=== PATIENT | female | born 1960 | race Caucasian/White ===

== ENCOUNTER 2017-07-28 17:41 | Emergency (ER) | payer OTHER, BC ==
[2017-07-28] MEDS: ACETAMINOPHEN 325 MG TAB PO (19:53)
== END 2017-07-28 20:45 | disposition home or self-care (01) ==
LOC: M ED 17:41
DX: S16.1XXA Strain of muscle, fascia and tendon at neck level, initial encounter (principal); V49.49XA Driver injured in collision with other motor vehicles in traffic accident, initial encounter; Y92.410 Unspecified street and highway as the place of occurrence of the external cause; Y93.89 Activity, other specified; Y99.8 Other external cause status; M50.30 Other cervical disc degeneration, unspecified cervical region; F41.9 Anxiety disorder, unspecified; Z98.84 Bariatric surgery status; Z79.899 Other long term (current) drug therapy; Z88.0 Allergy status to penicillin; Z88.1 Allergy status to other antibiotic agents; Z88.2 Allergy status to sulfonamides
CPT/HCPCS: 72125

== ENCOUNTER 2017-08-30 06:49 | Emergency (ER) | payer OTHER, BC ==
[2017-08-30] MEDS ORDERED: MORPHINE 2 MG/ML 1ML SYRINGE IV (08:15)
[2017-08-30] MEDS: PARoxetine 20 MG TAB PO (08:52)
[2017-08-30] MEDS: IBUPROFEN 600 MG TAB PO (08:52)
[2017-08-30 09:01] LABS: BEDSIDE GLUCOSE 95 MG/DL (70-105)
== END 2017-08-30 10:37 | disposition home or self-care (01) ==
LOC: M ED 06:49
DX: S60.211A Contusion of right wrist, initial encounter (principal); S20.219A Contusion of unspecified front wall of thorax, initial encounter; M54.6 Pain in thoracic spine; V49.40XA Driver injured in collision with unspecified motor vehicles in traffic accident, initial encounter; Y92.410 Unspecified street and highway as the place of occurrence of the external cause; I45.10 Unspecified right bundle-branch block; M19.031 Primary osteoarthritis, right wrist; F41.9 Anxiety disorder, unspecified; Z79.899 Other long term (current) drug therapy; Z88.0 Allergy status to penicillin; Z88.2 Allergy status to sulfonamides
CPT/HCPCS: 71046

== ENCOUNTER → 2021-04-05 | Outpatient (CLI) | payer OTHER, BC ==
[~2021-04-05] MED LIST: IBUP-1022 PO; PARO40TA2 PO; ROBA500T PO
== END ==
LOC: M LABSMTC 10:57
PROVIDERS: ATTEND Anesthesiology
DX: Z01.812 Encounter for preprocedural laboratory examination (principal); Z20.822 Contact with and (suspected) exposure to COVID-19

== ENCOUNTER 2021-04-10 06:12 | Day surgery (SDC) | payer BC ==
[~2021-04-10] VITALS: Ht 170.2 cm; Wt 102.4 kg
[~2021-04-10 06:12] MED LIST changes: +CIPROFLOXACIN 400 MG in IV 1 EA IV ONE; +HEPARIN SOD (PORCINE) 5000UNITS/ML 1ML VIAL/SYRINGE SQ ONE; +LR 1,000 ML IV ONE
[2021-04-10] MEDS ORDERED: BUPIVACAINE LIPOSOME/PF 1.3% 20ML VIAL (13.3MG/ML)(EXPAREL)(C9290 PER1MG) As Ordered ONE (07:14)
[2021-04-10] MEDS ORDERED: GENTAMICIN SULF 80MG/2ML VIAL As Ordered ONE (07:14)
[2021-04-10] MEDS ORDERED: ROCURONIUM BROMIDE 50 MG/5 ML VIAL As Ordered ONE ×2 (07:23→08:36)
[2021-04-10] MEDS ORDERED: LIDOCAINE 2% 100MG/5ML SDV (FOR ANES.) As Ordered ONE (07:23)
[2021-04-10] MEDS ORDERED: propofoL 200 MG/20 ML VIAL As Ordered ONE (07:23)
[2021-04-10] MEDS ORDERED: dexameTHASONE 4 MG/ML 1ML VIAL (J1100 PER 1MG) As Ordered ONE (07:23)
[2021-04-10] MEDS ORDERED: fentaNYL 250 MCG/5 ML INJECTION (J3010) As Ordered ONE (07:24)
[2021-04-10] MEDS ORDERED: MIDAZOLAM INJ 2MG/2ML VIAL (J2250 PER 1MG) As Ordered ONE (07:25)
[2021-04-10] MEDS ORDERED: GLYCOPYRROLATE INJ 0.2 MG/ML 2 ML VIAL As Ordered ONE (08:27)
[2021-04-10] MEDS ORDERED: LACRILUBE (AKWA TEARS) OPHTH OINT 3.5 GM As Ordered ONE (08:27)
[2021-04-10] MEDS ORDERED: SUGAMMADEX SODIUM 500 MG/5 ML VIAL (BRIDION) As Ordered ONE (08:55)
[2021-04-10] MEDS ORDERED: ACETAMINOPHEN 1000MG 100ML IV BTL (OFIRMEV) (J0131 PER 10MG) As Ordered ONE (08:55)
[2021-04-10] MEDS ORDERED: HYDROmorphone HCL 2 MG/ML 1ML VIAL As Ordered ONE (08:58)
[2021-04-10] MEDS ORDERED: ONDANSETRON 4MG/2ML VIAL As Ordered ONE (09:32)
[2021-04-10] MEDS ORDERED: SEVOFLURANE INHAL SOLN 250 ML BTL As Ordered ONE (09:52)
--- NOTE | 2021-04-10 11:25 | POST-OPPD ---
Postoperative Procedure Note Date Of Procedure: Apr 10, 2021 PREOPERATIVE DIAGNOSIS: Bilateral breast hypertrophy POSTOPERATIVE DIAGNOSIS: same PROCEDURE: Bilateral breast reduction. SURGEON: Dr Starkey DRY KILN WORKER: none ANESTHESIA: general ESTIMATED BLOOD LOSS: 200cc FINDINGS: large breasts SPECIMENS: Right breast 728 gm, Left breast 728 gm COMPLICATIONS: none REPLACED: none DRAINS: 10 mm LEONEL x 2 POSTOPERATIVE CONDITION: stable DK STARKEY DO Apr 10, 2021 11:25
--- NOTE | 2021-04-10 11:26 | ROOPDOC ---
[facility] Report Of Operation Report of Operation DATE OF PROCEDURE: 04/10/21 PREOPERATIVE DIAGNOSIS: Bilateral breast hypertrophy POSTOPERATIVE DIAGNOSIS: same PROCEDURE: Bilateral breast reduction. SURGEON: Dr Starkey LEAD BASED PAINT TECHNICIAN: none ANESTHESIA: general ESTIMATED BLOOD LOSS: 200cc FINDINGS: large breasts SPECIMENS: Right breast 728 gm, Left breast 728 gm COMPLICATIONS: none REPLACED: none DRAINS: 10 mm LEONEL x 2 POSTOPERATIVE CONDITION: stable DESCRIPTION OF PROCEDURE: This is a 61-year-old female who upper back and neck pain worsened by large breasts. Patient is status post gastric bypass and lost significant amount of weight however her breast size did not reduce. She still has significant amount of upper neck and back pain. She is scheduled for bilateral breast reduction. Risks, benefits, and alternatives were discussed with the patient in detail, and she is ready to proceed. The day of surgery, she was marked in the upright position and informed consent was obtained. She measures 35 cm from sternal notch to nipple on both sides, IMF at 24 cm bilaterally. She was brought into the operating room and placed in the supine position. Preoperative antibiotics and 5000 units heparin subcutaneous were given. Sequential pneumatic stocking were placed on the lower calves. General anesthesia was induced. She was prepped and draped in the usual sterile fashion. We started our procedure on the right side. Her nipple areolar complex was outlined 45 mm in diameter, and the patient was marked according superior medial pedicle. We started our incision by scoring the nipple areolar complex area, and then dissection was continued until the inferior lateral portion of the breast was resected. Hemostasis was obtained using electrocautery. The pedicle was de- epithelialized using Murillo scissors, good perfusion to the nipple at all times. Wound was irrigated with Ancef solution. We used Exparel 6 cc for local anesthesia to infiltrate in the Pectoralis muscle as well as the breast tissue. [place] Tisseel coagulation agent applied. Than, pedicle was turned superior to its new location at 25 cm from sternal notch. The mound was re-created using conforming 0 Vicryl sutures. Pillars were closed with interrupted 3-0 Monocryl sutures. The vertical limb was 10 cm. Excess tissue inferiorly was measured and resected, creating the horizontal scar. Nipple area complex was brought into view through the new opening and sutured in place with 3-0 and 4-0 Monocryl sutures and a 5-0 plain. A 10 mm Haseeb-Wilson drain was placed through the lateral portion of the horizontal incision. Her nipple areolar complex was outlined 45 mm in diameter, and the patient was marked according superior medial pedicle. We started our incision by scoring the nipple areolar complex area, and then dissection was continued until the inferior lateral portion of the breast was resected. Hemostasis was obtained using electrocautery. The pedicle was de-epithelialized using Murillo scissors, good perfusion to the nipple at all times. Wound was irrigated with Ancef solution. We used Exparel 6 cc for local anesthesia to infiltrate in the Pectoralis muscle as well as the breast tissue. [place] Tisseel coagulation agent applied. Than, pedicle was turned superior to its new location at 25 cm from sternal notch. The mound was re-created using conforming 0 Vicryl sutures. Pillars were closed with interrupted 3-0 Monocryl sutures. The vertical limb was 10 cm. Excess tissue inferiorly was measured and resected, creating the horizontal scar. Nipple area complex was brought into view through the new opening and sutured in place with 3-0 and 4-0 Monocryl sutures and a 5-0 plain. A 10 mm Haseeb-Wilson drain was placed through the lateral portion of the horizontal incision. Remaining Exparel injected in the horizontal incision. Total Exparel use 20 cc. Resected tissue sent to pathology in two specimens right and left breast tissue. Right breast 728 grams, left breast 728 grams. Dressings were applied to vertical and horizontal incision: Prinio strips and Dermabond. Nipples areolar complex: Xeroform and a bulky dressing with a surgical bra. Patient was extubated in the operating room without difficulty and was transferred to the recovery room in stable condition. . DK STARKEY DO Apr 10, 2021 11:26
[2021-04-10] MEDS ORDERED: ACETAMINOPHEN TAB 650MG DOSE (2X325MG) PO PRN (11:30)
[2021-04-10] MEDS ORDERED: ONDANSETRON 4MG/2ML VIAL IV PRN ×2 (11:30→12:00)
[2021-04-10] MEDS ORDERED: MORPHINE 4 MG/ML 1ML VIAL/SYRINGE (J2270) IV PRN (11:30)
[2021-04-10] MEDS ORDERED: fentaNYL 100 MCG/2 ML INJECTION (J3010) IV PRN (12:00)
[2021-04-10] MEDS ORDERED: LR 1,000 ML IV SCH (12:00)
[2021-04-10] MEDS ORDERED: oxyCODONE 5MG TAB PO PRN (12:00)
[2021-04-10] MEDS ORDERED: HYDROMORPHONE HCL 0.5 MG/ 0.5 ML SYRINGE (J1170 PER 1) IV PRN (12:00)
[2021-04-10 13:30] VITALS: BP 125/80
[2021-04-10 14:00] VITALS: BP 122/81
[2021-04-10] MEDS: LR 1,000 ML IV SCH (14:34)
[2021-04-10 15:00] VITALS: BP_SYST 122; BP_SYST 123; BP_DIAS 80; BP_DIAS 84
[2021-04-10] MEDS: PERCOCET 5MG/325MG TAB PO PRN ×2 (15:02→20:49)
[2021-04-10 16:00] VITALS: BP 118/82
[2021-04-10 18:00] VITALS: BP 122/80
[2021-04-10] MEDS ORDERED: CIPROFLOXACIN 400 MG in IV 1 EA IV ONE (20:30)
[2021-04-10 20:49] VITALS: BP 121/79
[2021-04-11 01:55] VITALS: BP 11/75
[2021-04-11 05:16] VITALS: BP 117/72
[2021-04-11] MEDS: LR 1,000 ML IV SCH (05:21)
[2021-04-11] MEDS ORDERED: PARoxetine 20MG TABLET PO SCH (09:00)
--- NOTE | 2021-04-11 09:28 | IPNPDOC ---
Subjective General Date Seen: Apr 11, 2021 Subject Chief Complaint/History The patient is a 61-year-old female admitted with a reason for visit of Bilateral Breast Hypertrophy. Patient status post bilateral breast reduction postop day 1. Pain controlled with Percocet, patient ambulating to the bathroom by herself. Feeling well today. Current Medications Current Medications Current Medications Medications (Trade) Dose Ordered Sig/Audrey Route PRN Reason Start Time Stop Time Status Last Admin Dose Admin Acetaminophen (Tylenol Tab) 650 mg Q6H PRN PO MILD PAIN (PS 1-4) 04/10/21 11:30 Fentanyl Citrate (Sublimaze) 25 mcg Q5MP PRN IV PAIN LEVEL 8-10 04/10/21 12:00 04/10/21 14:00 DC Hydromorphone HCl (Dilaudid) 0.2 mg Q5MP PRN IV PAIN LEVEL 5-7 04/10/21 12:00 04/10/21 14:00 DC Lactated Ringer's 1,000 ml @ 75 mls/hr [id number] IV 04/10/21 11:30 04/11/21 09:06 DC 04/11/21 05:21 Lactated Ringer's 1,000 ml @ 100 mls/hr Q10H IV 04/10/21 12:00 04/10/21 14:00 DC Morphine Sulfate (Morphine Sulfate Inj) 4 mg Q4HP PRN IV SEVERE PAIN (PS 8-10) 04/10/21 11:30 Ondansetron HCl (ZOFRAN INJection) 4 mg Q4H PRN IV NAUSEA OR VOMITING 04/10/21 11:30 Ondansetron HCl (ZOFRAN INJection) 4 mg Q4HP PRN IV NAUSEA OR VOMITING 04/10/21 12:00 04/10/21 14:00 DC Oxycodone HCl (Roxicodone, Oxyir) 5 mg ASDIRECTED PRN PO PAIN LEVEL 1-4 04/10/21 12:00 04/10/21 14:00 DC Oxycodone/ Acetaminophen (Percocet 5mg/ 325mg Tablet) 2 tab Q4HP PRN PO PAIN LEVEL 4-7 04/10/21 11:30 04/10/21 20:49 Paroxetine HCl (PAXil) 40 mg DAILY PO 04/11/21 09:00 04/11/21 09:08 Allergies Coded Allergies: Penicillins (Verified Allergy, Unknown, HIVES, TOUNGE SWELLING, 04/02/21) Sulfa (Sulfonamide Antibiotics) (Verified Allergy, Unknown, HIVES, TOUNGE SWELLING, 04/02/21) Objective Physical Examination Examination GENERAL APPEARANCE:Patient seen, laying in bed, awake, alert, and oriented. Comfortable, in no acute distress. SKIN: Warm and moist. BREAST: Right and left soft, non-tender incisions intact. LEONEL drains: 40/40 cc/24 hr. NAC: Viable, warm, symmetrical, mild post-op ecchymosis, no expanding hematoma. HEENT: Normocephalic, atraumatic. Bowers palpebral conjunctiva, anicteric sclerae. Lips and mucosa appear moist. NECK: Supple, no thyromegaly. No obvious jugular venous distention. LUNGS: Clear to auscultation bilaterally. No wheezing appreciated. HEART: No chest wall abnormalities. Regular rate and rhythm with no murmurs appreciated. ABDOMEN: Abdomen is soft, non-tender, non-distended. EXTREMITIES: No edema identified. No calf tenderness. Vital Signs Vital Signs Date Time Temp Pulse Resp B/P (MAP) Pulse Ox O2 Delivery O2 Flow Rate FiO2 04/11/21 05:16 98.2 87 18 117/72 (87) 94 Room Air 04/10/21 16:00 2.0 I&Os I&O- Last 24 Hours up to 6 AM 04/11/21 05:59 Intake Total 3600 ml Output Total 1020 ml Balance 2580 ml Impression Status post bilateral breast reduction postop day 1. Stable for discharge. Dressings changed today. Continue monitoring LEONEL drains at home. Continue with support bra. Return to the plastic surgery office postop. Plan / VTE VTE Prophylaxis Ordered?: Yes DK STARKEY DO Apr 11, 2021 09:28
[2021-04-11] MEDS ORDERED: PERCOCET PO (09:31)
== END 2021-04-11 14:10 | disposition home or self-care (01) ==
LOC: M SDC 06:12 → M MS5PR 13:20 → M SDC 04-11 14:10
PROVIDERS: ATTEND Plastic Surgery Surgery of the Hand
DX: N62 Hypertrophy of breast (principal); K21.9 Gastro-esophageal reflux disease without esophagitis; F41.9 Anxiety disorder, unspecified; G47.33 Obstructive sleep apnea (adult) (pediatric); Z98.84 Bariatric surgery status; Z88.0 Allergy status to penicillin; Z88.2 Allergy status to sulfonamides; Z79.899 Other long term (current) drug therapy
CPT/HCPCS: 19318; 88305; 96365; C9290; J0131; J0744; J1100; J1170; J1580; J1644; J2250; J2405; J3010

== ENCOUNTER → 2022-09-06 | Outpatient (CLI) | payer BC ==
[~2022-09-06] MED LIST changes: -CIPROFLOXACIN 400 MG in IV 1 EA IV ONE; +CYAN2500 SL; +GABA-1171 PO; -HEPARIN SOD (PORCINE) 5000UNITS/ML 1ML VIAL/SYRINGE SQ ONE; +LEXA1TAB PO; -LR 1,000 ML IV ONE; +PERCOCET PO; +TRUL10IN
== END ==
LOC: M LABSMTC 10:06
PROVIDERS: ATTEND Anesthesiology
DX: Z01.812 Encounter for preprocedural laboratory examination (principal); Z11.52 Encounter for screening for COVID-19

== ENCOUNTER 2022-09-10 10:22 | Observation (INO) | payer BC ==
[~2022-09-10] VITALS: Ht 170.2 cm; Wt 102.6 kg
[~2022-09-10 10:22] MED LIST changes: +CLINDAMYCIN 900 MG in IV 1 EA IV ONE; +HEPARIN SOD (PORCINE) 5000UNITS/ML 1ML VIAL/SYRINGE SQ ONE; +LIDOCAINE 2% 100MG/5ML SDV (FOR ANES.) As Ordered ONE; +ONDANSETRON 4MG 2ML VIAL As Ordered ONE; +ROCURONIUM BROMIDE 50MG/5ML VIAL As Ordered ONE; +SUGAMMADEX SODIUM 500 MG/5 ML VIAL (BRIDION) As Ordered ONE; -TRUL10IN; +TRUL10IN SC; +propofoL 200 MG/20 ML VIAL As Ordered ONE
[2022-09-10] MEDS ORDERED: LR 1,000 ML IV SCH ×2 (10:35→17:35)
[2022-09-10] MEDS ORDERED: HOME MED LIST COMPLETE! XX SCH (11:30)
[2022-09-10] MEDS ORDERED: BUPIVACAINE HCL 0.25% 30ML VIAL As Ordered ONE (12:37)
[2022-09-10] MEDS: LIDOCAINE 1% MDV 20ML VIAL As Ordered ONE ×2 (12:37→14:10)
[2022-09-10] MEDS ORDERED: BUPIVACAINE LIPOSOME/PF 1.3% 20ML VIAL (13.3MG/ML)(EXPAREL) As Ordered ONE (12:38)
[2022-09-10] MEDS ORDERED: GENTAMICIN SULF 80MG/2ML VIAL As Ordered ONE (12:38)
[2022-09-10] MEDS ORDERED: EPINEPHrine INJ 1 MG/ML 1ML AMP As Ordered ONE (12:38)
[2022-09-10] MEDS ORDERED: fentaNYL 250 MCG/5 ML INJECTION As Ordered ONE (12:44)
[2022-09-10] MEDS ORDERED: MIDAZOLAM INJ 2MG/2ML VIAL As Ordered ONE (12:44)
[2022-09-10] MEDS ORDERED: ACETAMINOPHEN 1000MG 100ML IV BAG As Ordered ONE (13:53)
[2022-09-10] MEDS ORDERED: ePHEDrine SULFATE 25 MG/5 ML(5MG/ML) SYRINGE As Ordered ONE (14:06)
[2022-09-10] MEDS ORDERED: ROCURONIUM BROMIDE 50MG/5ML VIAL As Ordered ONE (14:21)
[2022-09-10] MEDS ORDERED: HYDROmorphone HCL 2MG/ML 1ML VIAL As Ordered ONE (15:01)
[2022-09-10] MEDS ORDERED: ACETAMINOPHEN TAB 650MG DOSE (2X325MG) PO PRN (17:20)
[2022-09-10] MEDS ORDERED: ONDANSETRON 4MG 2ML VIAL IV PRN (17:35)
[2022-09-10] MEDS ORDERED: fentaNYL 100 MCG/2 ML INJECTION IV PRN (17:35)
[2022-09-10] MEDS ORDERED: oxyCODONE 5MG TAB PO PRN (17:35)
[2022-09-10] MEDS: ONDANSETRON 4MG 2ML VIAL IV PRN (17:58)
[2022-09-10] MEDS: LR 1,000 ML IV SCH (18:02)
[2022-09-10 18:55] VITALS: BP 131/72
[2022-09-10 19:38] VITALS: BP 124/70
[2022-09-10] MEDS: traMADol 50 MG TAB PO PRN (20:12)
[2022-09-10 20:25] VITALS: BP 121/66
[2022-09-10 21:25] VITALS: BP 122/65
[2022-09-10 22:21] VITALS: BP 120/68
[2022-09-11 02:00] VITALS: BP 115/59
[2022-09-11] MEDS: traMADol 50 MG TAB PO PRN (05:45)
[2022-09-11 05:53] VITALS: BP 113/59
[2022-09-11] MEDS: LR 1,000 ML IV SCH (06:25)
[2022-09-11] MEDS: ONDANSETRON 4MG 2ML VIAL IV PRN (08:32)
[2022-09-11] MEDS ORDERED: LR 1,000 ML IV ONE (08:50)
[2022-09-11 09:02] LABS: HEMATOCRIT 34.2 % (36.0-47.0); HEMOGLOBIN 10.3 g/dl (12.0-15.5); MEAN CORPUSCULAR HEMOGLOBIN 25.8 pg (27.0-33.0); MEAN CORPUSCULAR HGB CONC 30.1 g/dl (32.0-36.5); MEAN CORPUSCULAR VOLUME 85.7 fl (80.0-96.0); PLATELET COUNT, AUTOMATED 246 10^3/uL (150-450); RED BLOOD COUNT 3.99 10^6/uL (4.00-5.40); WHITE BLOOD COUNT 8.9 10^3/uL (4.0-10.0)
[2022-09-11] MEDS: PERCOCET 5MG/325MG TAB PO PRN ×2 (09:57→23:50)
[2022-09-11 14:00] VITALS: BP 113/58
[2022-09-11 20:02] VITALS: BP 122/62
[2022-09-12 05:57] VITALS: BP 118/64
[2022-09-12] MEDS ORDERED: PERCOCET PO (12:10)
== END 2022-09-12 13:30 | disposition home or self-care (01) ==
LOC: M SDC 10:22 → M ED INP 17:19 → M MS5PR 18:40
PROVIDERS: ADMIT Plastic Surgery Surgery of the Hand; ATTEND Plastic Surgery Surgery of the Hand
DX: M54.07 Panniculitis affecting regions of neck and back, lumbosacral region (principal); L90.5 Scar conditions and fibrosis of skin; K21.9 Gastro-esophageal reflux disease without esophagitis; G47.30 Sleep apnea, unspecified; Z79.899 Other long term (current) drug therapy; Z98.84 Bariatric surgery status; Z88.0 Allergy status to penicillin; Z88.2 Allergy status to sulfonamides
CPT/HCPCS: 15830; 15847; 36415; 85027; 88300; 96361; 96374; 96375; C9290; J0131; J1100; J1170; J1580; J1644; J2250; J2405; J3010; S0020; S0077